=== PATIENT | male | born 1970 | race Caucasian/White ===

== ENCOUNTER 2020-01-27 15:57 | Emergency (ER) | payer OTHER, SELFPAY ==
[2020-01-27 16:16] VITALS: BP 192/86; PULSE 88; RESP 18; TEMP 37.7; O2SAT 96
--- NOTE | 2020-01-27 16:45 | CT_ITS ---
EXAMINATION: CT SOFT TISSUE NECK WITH CONTRAST CLINICAL INFORMATION: Rule out peritonsillar abscess on left. COMPARISON: None TECHNIQUE: Following the intravenous administration of 60 mL of Omnipaque 350 contrast, helical imaging was performed in the axial plane with generation of coronal and sagittal reformatted images. This CT examination was performed using dose optimization techniques as appropriate, variously including the following: *Automated exposure control *Adjustment of mA and/or kV according to patient size (this includes techniques or standardized protocols for targeted exams where dose is matched to indication/reason for exam; i.e. extremities or head) *Use of iterative reconstruction technique DLP: 1076 mGy-cm FINDINGS: There is a 2.2 x 1.8 x 2.7 cm peripherally enhancing low-density collection in the left tonsillar pillar which is asymmetrically enlarged, likely representing a peritonsillar abscess. There is edematous change and thickening of the uvula and soft palate. The nasopharyngeal airway is severely narrowed and focally obliterated. There is edematous thickening as well inferiorly in the left oropharyngeal wall extending inferiorly to the superior aperture of the left piriform sinus and lateral aspect of the left aryepiglottic fold in the supraglottic larynx. No retropharyngeal fluid collection is seen. The epiglottis is normal in appearance. The oral cavity appears normal. The parotid and submandibular glands are homogeneous. There is mild reactive cervical adenopathy bilaterally at level II and III levels with jugulodigastric lymph nodes measuring up to 2.6 cm in long axis dimension in the axial plane. No suppurative adenopathy is seen. No abnormal extra-mucosal fluid collection visible. There is fullness of the nasopharyngeal tissues with a small calcification in the central adenoids which may be postinflammatory in etiology. There is mild infiltration of the left parapharyngeal fat edematous changes in the left oropharyngeal wall. No acute osseous abnormality is seen. Incompletely unerupted and partially impacted molar teeth present. There is an unerupted mandibular incisor in the midline alveolar bone. Maxillary tooth roots protrude through the floor of the maxillary sinuses bilaterally. There is periapical lucency around the right first maxillary molar tooth root. There is mild to moderate maxillary sinus mucosal thickening, particularly along the floors. Aerosolized secretions noted in the sphenoid sinus cavity. There is a severe leftward nasal septal deviation and a large nasal septal defect anteroinferiorly. The mastoid air cells are aerated. The carotid sheath vasculature opacifies normally. The glottic and subglottic larynx are normal. The thyroid gland is homogeneous. The imaged mediastinum is unremarkable. The visualized portions of the lungs are clear. The visualized brain parenchyma demonstrates no acute abnormality. CT/CT soft tissue neck w con IMPRESSION: Approximate 2.2 x 2.7 cm left peritonsillar abscess with edematous change in the left oropharyngeal wall and partial effacement of the nasopharyngeal airway. Reactive cervical adenopathy bilaterally. Mild to moderate mucosal thickening along the floors of the maxillary sinuses with partial protrusion of maxillary molar tooth roots across the floor of the maxillary sinuses with right first maxillary molar periapical disease. Recommend follow-up dental evaluation. Significant leftward nasal septal deviation with distortion of the left inferior turbinate. Prominent perforation defect in the anteroinferior cartilaginous septum.
[2020-01-27 16:57] VITALS: BP 192/86; PULSE 88; RESP 18; TEMP 37.7; O2SAT 96; BMI 52.9
[2020-01-27 17:04] LABS: MANUAL DIFF FLAG NO
[2020-01-27 17:08] LABS: Basophils Percent Auto 0.2 % (0-2); Eosinophils Absolute Auto 0.3 X10*3/uL (0.0-0.4); Eosinophils Percent Auto 2.1 % (0-4); Hematocrit 43.4 % (42-52); Hemoglobin 13.9 g/dl (14.0-18.0); Imm Gran Abs Auto 0.03 X10*3/uL (0.00-0.03); Imm Gran Pct Auto 0.2 % (0.0-0.4); Lymphocytes Absolute Auto 1.7 X10*3/uL (1.2-4.9); Lymphocytes Percent Auto 14.1 % (20-40); Mean Corpuscular Hemoglobin 30.3 pg (27.0-33.0); Mean Corpuscular Volume 94.6 fL (80-98); Mean Platelet Volume 10.2 fL (9.4-12.4); Monocytes Absolute Auto 1.2 X10*3/uL (0.1-1.2); Monocytes Percent Auto 9.4 % (2-11); Neutrophils Absolute Auto 9.1 X10*3/uL (2.0-8.3); Platelet Count 303 X10*3/uL (160-400); Red Blood Count 4.59 X10*6/uL (4.60-5.80); Red Cell Distribution Width 12.8 % (11.0-16.0); White Blood Count 12.3 X10*3/uL (4.8-10.8)
[2020-01-27 17:41] LABS: Anion Gap 13 (12-20); Blood Urea Nitrogen 11 mg/dL (9-16); Carbon Dioxide 29 mmol/L (22-29); Chloride 102 mmol/L (96-108); Creatinine Clr Calc Pharmacy 178.6; Estimated Glomerular Filt Rate > 60; Glucose Random 129 mg/dL (60-115); Sodium 139 mmol/L (135-145)
[2020-01-27 17:47] LABS: Calcium 9.3 mg/dL (8.4-10.2)
[2020-01-27] MEDS: dexAMETHasone 2 MG TABLET 10 MG PO (17:47)
[2020-01-27] MEDS: Clindamycin Phosphate/D5W 600 MG/50 ML PIGGYBACK 100 MG IV (17:47)
--- NOTE | 2020-01-27 18:07 | ED_ITS ---
HPI - URI/Sore Throat General Chief Complaint: Upper Respiratory Symptoms <JEFF Charles Last Filed: 01/27/20 18:13> Stated Complaint: SORE THROAT/EARACHE <JEFF Charles Last Filed: 01/27/20 18:13> Time Seen by Provider: 01/27/20 16:25 <JEFF Charles Last Filed: 01/27/20 18:13> Source: patient <JEFF Charles Last Filed: 01/27/20 18:13> Mode of arrival: ambulatory <JEFF Charles Last Filed: 01/27/20 18:13> History of Present Illness HPI Narrative: 50-year-old male with no significant past medical history complaining of left-sided facial, left-sided throat, and left ear pain x4 days. Reports muffle d hearing, and pain with swallowing. Denies fever, chills, inability to swallow /drooling, CP/ SOB, drainage from ear <JEFF Charles Last Filed: 01/27/20 18:13> MD elicited complaint: sore throat and nasal congestion <JEFF Charles Last Filed: 01/27/20 18:13> Related Data Allergies/Adverse Reactions: Allergies Allergy/AdvReac Type Severity Reaction Status Date / Time No Known Allergies Allergy Unverified 12/19/19 17:08 <JEFF Charles Last Filed: 01/27/20 18:13> Review of Systems Review of Systems: Constitutional: No Weight loss, No Fever, No Chills ENT/Mouth: +L Ear Pain, No Nasal Congestion, No Sinus Pain, + Hoarseness,+ sore throat, No Rhinorrhea, No Swallowing Difficulty Cardiovascular: No Chest Pain, No SOB Respiratory: No Cough, No Sputum, No Wheezing Gastrointestinal: No Nausea, No Vomiting, No Diarrhea Skin: No Skin Lesions, No rash <JEFF Charles Last Filed: 01/27/20 18:13> Yes all other systems are reviewed and are negative <JEFF Charles Last Filed: 01/27/20 18:13> PMFSH Past Medical History Attestation statement: The following information was validated with the patient. <JEFF Charles Last Filed: 01/27/20 18:13> Source: nursing notes reviewed <JEFF Charles - Last Filed: 01/27/20 18:13> Social History Social History: Social History Smoking Status: Current some day smoker Use of substances other than those prescribed or required for medical reasons: No Advance Directives: No Advance Directives Information Provided: No <JEFF Charles - Last Filed: 01/27/20 18:13> Physical Exam Vital Signs: Vital Signs: Vital Signs Temp Pulse Resp BP Pulse Ox 01/27/20 16:57 99.9 F 88 18 192/86 H 96 01/27/20 16:16 99.9 F 88 18 192/86 H 96 Body Mass Index 52.9 <JEFF Charles - Last Filed: 01/27/20 18:13> Vital Signs: Vital Signs Temp Pulse Resp BP Pulse Ox 01/27/20 16:57 99.9 F 88 18 192/86 H 96 01/27/20 16:16 99.9 F 88 18 192/86 H 96 Body Mass Index 52.9 <Duy Olvera MD - Last Filed: 01/27/20 19:56> Const: General: cooperative and healthy appearing <JEFF Charles - Last Filed: 01/27/20 18:13> Orientation/consciousness: patient oriented x3 <JEFF Charles - Last Filed: 01/27/20 18:13> Limitations: no limitations <JEFF Charles - Last Filed: 01/27/20 18:13> HENMT: Other: no mastoid abnormality or tenderness. + left upper hard palate swelling. Uvula midline. Voice slightly muffled <JEFF Charles - Last Filed: 01/27/20 18:13> Head: Yes normal to inspection <JEFF Charles - Last Filed: 01/27/20 18:13> Ears: hearing grossly normal bilaterally and TM abnormal ( left TM erythematous, dull) <JEFF Charles - Last Filed: 01/27/20 18:13> General nose exam: Normal external nose present <JEFF Charles - Last Filed: 01/27/20 18:13> Face and sinus: Yes normal facial exam <JEFF Charles - Last Filed: 01/27/20 18:13> Eyes: General: appearance normal, both eyes and all related structures <JEFF Charles - Last Filed: 01/27/20 18:13> EOM: EOMs intact bilaterally <Olivia Trevino AK - Last Filed: 01/27/20 18:13> Neck: Other: mild left-sided submandibular lymphadenopathy <Olivia Trevino AK - Last Filed: 01/27/20 18:13> Neck: Yes normal visual inspection <Olivia Trevino AK - Last Filed: 01/27/20 18:13> Resp: Effort & Inspection: normal respiratory effort <Olivia Trevino AK - Last Filed: 01/27/20 18:13> Cardio: Rate: regular rate <Olivia Trevino AK - Last Filed: 01/27/20 18:13> Skin: Rashes: no rashes <Olivia Trevino AK - Last Filed: 01/27/20 18:13> Wounds: no wounds <Olivia Trevino AK - Last Filed: 01/27/20 18:13> Neuro: General: patient oriented x3 <Olivia Trevino AK - Last Filed: 01/27/20 18:13> Gait exam (Neuro): Normal gait present <JEFF Charles - Last Filed: 01/27/20 18:13> Extrem: General: Yes normal to inspection <JEFF Charles - Last Filed: 01/27/20 18:13> Course Course Course Narrative: -- mild leukocytosis of 12.3, labs otherwise unremarkable -1814--ED care transferred to Dr. Olvera pending CT results <JEFF Charles - Last Filed: 01/27/20 18:13> left peritonsillar abscess drained under local anesthesia 5 mL of pus drained patient feeling much better procedure uncomplicated discharge patient home on Augmentin <Duy Olvera MD - Last Filed: 01/27/20 19:56> Procedures Abscess I/D Site: oral ( left peritonsillar) <Duy Olvera MD - Last Filed: 01/27/20 19 :56> Side (if applicable): left <Duy Olvera MD - Last Filed: 01/27/20 19:56> Local Anesthetic: other anesthetic ( lidocaine 4%) <Duy Olvera MD - Last Filed: 01/27/20 19:56> Amount of anesthesia used (mL): 4 <Duy Olvera MD - Last Filed: 01/27/20 19:56> Technique: needle aspiration <Duy Olvera MD - Last Filed: 01/27/20 19:56> Amount of fluid expressed (mL): 5 <Duy Olvera MD - Last Filed: 01/27/20 19:56> Sent for culture/gram staining?: No <Duy Olvera MD - Last Filed: 01/27/20 19:56> MDM - URI/Sore Throat MDM Narrative Medical decision making narrative: On exam VSS, NAD, uvula midline however appreciable L intraoral swelling and muffled voice. Concern for [employer] vs cellulitis vs strep vs otitis. airway intact. patient talking in complete sentences, in no respiratory distress. Plan: Labs, CT, IV Clindamycin, Decadron p.o., reassess <JEFF Charles - Last Filed: 01/27/20 18:13> Lab Data Result diagrams: : 01/27/20 16:49 01/27/20 16:49 <JEFF Charles - Last Filed: 01/27/20 18:13> Labs: Lab Results 01/27/20 01/27/20 Range/Units 16:49 16:49 WBC 12.3 H (4.8-10.8) X10*3/uL RBC 4.59 L (4.60-5.80) X10*6/uL Hgb 13.9 L (14.0-18.0) g/dl Hct 43.4 (42-52) % MCV 94.6 (80-98) fL MCH 30.3 (27.0-33.0) pg MCHC 32.0 (31.0-36.0) g/dl RDW 12.8 (11.0-16.0) % Plt Count 303 (160-400) X10*3/uL MPV 10.2 (9.4-12.4) fL Immature Gran % (Auto) 0.2 (0.0-0.4) % Neut % (Auto) 74.0 H (45-73) % Lymph % (Auto) 14.1 L (20-40) % [place] % (Auto) 9.4 (2-11) % Eos % (Auto) 2.1 (0-4) % Baso % (Auto) 0.2 (0-2) % Lymph # (Auto) 1.7 (1.2-4.9) X10*3/uL [place] # (Auto) 1.2 (0.1-1.2) X10*3/uL Eos # (Auto) 0.3 (0.0-0.4) X10*3/uL Baso # (Auto) 0.0 (0.0-0.2) X10*3/uL Abs Immat Gran (auto) 0.03 (0.00-0.03) X10*3/uL Absolute Neuts (auto) 9.1 H (2.0-8.3) X10*3/uL Absolute Nucleated RBC 0.000 (0.0-0.012) X10*3/uL Nucleated RBC % (auto) 0.0 (0.0-0.2) /100WBC Sodium 139 (135-145) mmol/L Potassium 5.0 (3.3-5.1) mmol/l Chloride 102 (96-108) mmol/L Carbon Dioxide 29 (22-29) mmol/L Anion Gap 13 (12-20) BUN 11 (9-16) mg/dL Creatinine 0.83 (0.5-1.4) mg/dL Estim Creat Clear Calc 178.6 Estimated GFR > 60 Random Glucose 129 H (60-115) mg/dL Calcium 9.3 (8.4-10.2) mg/dL <JEFF Charles - Last Filed: 01/27/20 18:13> Lab Results 01/27/20 01/27/20 Range/Units 16:49 16:49 WBC 12.3 H (4.8-10.8) X10*3/uL RBC 4.59 L (4.60-5.80) X10*6/uL Hgb 13.9 L (14.0-18.0) g/dl Hct 43.4 (42-52) % MCV 94.6 (80-98) fL MCH 30.3 (27.0-33.0) pg MCHC 32.0 (31.0-36.0) g/dl RDW 12.8 (11.0-16.0) % Plt Count 303 (160-400) X10*3/uL MPV 10.2 (9.4-12.4) fL Immature Gran % (Auto) 0.2 (0.0-0.4) % Neut % (Auto) 74.0 H (45-73) % Lymph % (Auto) 14.1 L (20-40) % [place] % (Auto) 9.4 (2-11) % Eos % (Auto) 2.1 (0-4) % Baso % (Auto) 0.2 (0-2) % Lymph # (Auto) 1.7 (1.2-4.9) X10*3/uL [place] # (Auto) 1.2 (0.1-1.2) X10*3/uL Eos # (Auto) 0.3 (0.0-0.4) X10*3/uL Baso # (Auto) 0.0 (0.0-0.2) X10*3/uL Abs Immat Gran (auto) 0.03 (0.00-0.03) X10*3/uL Absolute Neuts (auto) 9.1 H (2.0-8.3) X10*3/uL Absolute Nucleated RBC 0.000 (0.0-0.012) X10*3/uL Nucleated RBC % (auto) 0.0 (0.0-0.2) /100WBC Sodium 139 (135-145) mmol/L Potassium 5.0 (3.3-5.1) mmol/l Chloride 102 (96-108) mmol/L Carbon Dioxide 29 (22-29) mmol/L Anion Gap 13 (12-20) BUN 11 (9-16) mg/dL Creatinine 0.83 (0.5-1.4) mg/dL Estim Creat Clear Calc 178.6 Estimated GFR > 60 Random Glucose 129 H (60-115) mg/dL Calcium 9.3 (8.4-10.2) mg/dL <Duy Olvera MD - Last Filed: 01/27/20 19:56> Discharge Plan Discharge Patient Disposition: Home, Self-Care <JEFF Charles - Last Filed: 01/27/20 18:13>
[2020-01-27] MEDS: iohexoL 350 MG/ML 100 ML INFUS..BTL IV (18:10)
[2020-01-27] MEDS: Ketorolac Tromethamine 15 MG/ML VIAL IVPUSH (18:27)
[2020-01-27] MEDS: Morphine Sulfate 2 MG/ML CARTRIDGE IVPUSH (18:27)
[2020-01-27 20:00] VITALS: BP 152/79; PULSE 89; RESP 18; TEMP 37.6; O2SAT 95
== END 2020-01-27 20:44 | disposition home or self-care (01) ==
PROVIDERS: Physician Assistant; Emergency Provider Internal Medicine; PCP Nurse Practitioner Family
DX: J36 Peritonsillar abscess (principal); H92.03 Otalgia, bilateral; Z20.828 Contact with and (suspected) exposure to other viral communicable diseases; F17.200 Nicotine dependence, unspecified, uncomplicated; Z71.6 Tobacco abuse counseling
CPT/HCPCS: 36415; 42700; 70491; 80048; 85025; 87071; 87635; 87880; 96365; 96375; 99284; J1885; J2270; J8540

== ENCOUNTER 2020-02-10 05:59 | Emergency (ER) | payer OTHER, SELFPAY ==
[2020-02-10 06:07] VITALS: BP 145/82; PULSE 76; RESP 16; TEMP 36.8; O2SAT 96; BMI 49.3
--- NOTE | 2020-02-10 06:17 | ECG_ITS ---
Test Reason : ARM NUMBNESS Blood Pressure : / mmHG Vent. Rate : 066 BPM Atrial Rate : 066 BPM P-R Int : 154 ms QRS Dur : 086 ms QT Int : 412 ms P-R-T Axes : 043 006 053 degrees QTc Int : 431 ms Normal sinus rhythm Normal ECG When compared with ECG of 24-APR-2018 05:27, Vent. rate has decreased BY 39 BPM Referred By: Mikel Tamayo Electronically Signed By:JAVIER RODRIGUEZ MD
--- NOTE | 2020-02-10 06:18 | XR_ITS ---
EXAMINATION: CHEST 1 VIEW CLINICAL INFORMATION: Shortness of breath. COMPARISON: 12/22/2018. TECHNIQUE: An AP view of the chest is provided. FINDINGS: The cardiac silhouette is not enlarged. The mediastinal and hilar contours are unremarkable. There are neither pleural effusions nor pneumothoraces. There are no consolidations. The osseous structures are unremarkable. XR/XR chest 1V IMPRESSION: No evidence for acute disease.
[2020-02-10 06:42] LABS: Basophils Percent Auto 0.3 % (0-2); Eosinophils Absolute Auto 0.2 X10*3/uL (0.0-0.4); Eosinophils Percent Auto 2.3 % (0-4); Imm Gran Abs Auto 0.02 X10*3/uL (0.00-0.03); Imm Gran Pct Auto 0.3 % (0.0-0.4); Lymphocytes Absolute Auto 1.7 X10*3/uL (1.2-4.9); Lymphocytes Percent Auto 24.2 % (20-40); MANUAL DIFF FLAG NO; Mean Corpuscular HGB Conc 31.7 g/dl (31.0-36.0); Mean Corpuscular Volume 94.5 fL (80-98); Mean Platelet Volume 11.4 fL (9.4-12.4); Monocytes Absolute Auto 0.7 X10*3/uL (0.1-1.2); Monocytes Percent Auto 9.2 % (2-11); Neutrophils Absolute Auto 4.5 X10*3/uL (2.0-8.3); Neutrophils Percent Auto 63.7 % (45-73); Platelet Count 250 X10*3/uL (160-400); Red Blood Count 4.34 X10*6/uL (4.60-5.80); Red Cell Distribution Width 12.4 % (11.0-16.0)
--- NOTE | 2020-02-10 06:48 | ED_ITS ---
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 Mode of arrival: ambulatory Limitations: no limitations History of Present Illness HPI narrative: evie he woke up like this with his arm tingling and painful complaint: wants neb treatment, L arm pain/numbness hurts to make a fist Onset (ago): day(s) (3) Location: left and upper extremity Radiation: non-radiation Severity: moderate Quality: aching Pain Consistency: constant Relieving factors: none Exacerbating factors: movement Associated symptoms: cough Treatments prior to arrival: none Related Data Home Medications Medication Instructions Recorded Confirmed betamethasone dipropionate TOPICAL BID 02/10/20 cholecalciferol (vitamin D3) 1 cap PO DAILY 02/10/20 02/10/20 diclofenac sodium 2 g TOPICAL QID 02/10/20 02/10/20 fluticasone propionate [Flovent 1 puff INHALATION 02/10/20 HFA] folic acid 1 tab PO DAILY 02/10/20 02/10/20 insulin glargine [Lantus Solostar 10 unit SUBCUT BEDTIME 02/10/20 02/10/20 U-100 Insulin] loratadine 1 tab PO DAILY 02/10/20 02/10/20 melatonin 1 tab PO BEDTIME 02/10/20 02/10/20 metformin 1 tab PO BID 02/10/20 02/10/20 montelukast 1 tab PO DAILY 02/10/20 02/10/20 sertraline 1 tab PO DAILY 02/10/20 02/10/20 tramadol 1 tab PO Q8H PRN 02/10/20 02/10/20 trazodone 1 - 2 tab PO BEDTIME PRN 02/10/20 02/10/20 umeclidinium [Incruse Ellipta] 1 inh INHALATION 02/10/20 Previous Rx's Medication Instructions Recorded amoxicillin-pot clavulanate 1 tab PO BID #20 tab 01/27/20 [Augmentin] ibuprofen 600 mg PO Q6H PRN #20 tab 01/27/20 cyclobenzaprine 10 mg PO TID PRN #14 tab 02/10/20 Allergies Allergy/AdvReac Type Severity Reaction Status Date / Time No Known Allergies Allergy Verified 02/10/20 06:47 Review of Systems Review of Systems: Constitutional : No Fever, No Chills ENT/Mouth : No Ear Pain, No Hoarseness, No sore throat Eyes: No Eye Pain, No Swelling, No Redness, No Foreign Body Cardiovascular : No Chest Pain, No SOB Respiratory : pos Cough, No Dyspnea Gastrointestinal : No Nausea, No Vomiting, No Diarrhea, No abdominal Pain Genitourinary : No Dysuria, No Hematuria Musculoskeletal : positive joint pain, pos Myalgias, No Joint Swelling Skin : No Skin lacerations, No rash Neuro : No Weakness, No Numbness, No Loss of Consciousness, No Dizziness, No Headache Psych : No Anxiety/Panic, No Depression Heme/Lymph: no easy bruising, no Lymphadenopathy Endocrine : No Polyuria, No Polydipsia All other systems reviewed and are negative [facility] Past Medical History Medical History Arthritis Asthma Diabetes HTN (hypertension) Social History Social History Alcohol intake: never Smoking Status: Current some day smoker Use of substances other than those prescribed or required for medical reasons: No Advance Directives: Yes Advance Directives Information Provided: Yes Advance Directives on File: No Physical Exam Vital Signs: Vital Signs: Last Vital Signs Temp 98.2 F 02/10/20 06:07 Pulse 76 02/10/20 06:07 Resp 16 02/10/20 06:07 BP 145/82 H 02/10/20 06:07 Pulse Ox 96 02/10/20 06:07 Body Mass Index 49.3 Appearance: Alert. Oriented X3. No acute distress. Eyes: Pupils equal, round and reactive to light. ENT: Pharynx normal. Neck: Normal inspection. Neck supple. No pain, no mass, full ROM CVS: Normal heart rate and rhythm. Pulses normal. Respiratory: No respiratory distress. Breath sounds normal. Abdomen: Soft and nontender. Obese Skin: Skin warm and dry. Normal skin color. Normal skin turgor. Extremities: No lower extremity edema. L arm pain from elbow to hand - no swelling, 2+ radial pulse, thenar eminence swollen mildly cannot make full fist seems mostly pain related Neuro: Oriented X 3. No motor deficit. No sensory deficit. Course Course Course Narrative: his left arm pain is reproduceable and distal to elbow mostly hand itself I believe this is a peripheral issue and not a central will DC home with medications Procedures Orthopedic Splinting/Casting Injury #1: Side: left Upper Extremity Injury Location: wrist Upper Extremity Immobilizer: wrist splint Medical Decision Making [facility] Narrative Medical decision making narrative: 50 yo male with recent L [employer] - on01/26 throat symptoms have cleared no sore throat, no fevers, no issues swallowing, no neck pain now here with request for neb treatment as well as his L hand from elbow to hand is painful and feels tingling he cannot make a fist due to the pain this has been going on for 3 days, will need neb, labs, EKG, CXR seems unusual for ACS/stroke and the pain/numbness is very peripheral - no trauma reported woke up like this one day after sleep could be peripheral nerve palsy - CT head ordered but seems unusual for stroke Lab Data Result diagrams: 02/10/20 06:32 02/10/20 06:32 Labs: Lab Results 02/10/20 02/10/20 02/10/20 Range/Units 06:32 06:32 06:32 WBC 7.0 (4.8-10.8) X10*3/uL RBC 4.34 L (4.60-5.80) X10*6/uL Hgb 13.0 L (14.0-18.0) g/dl Hct 41.0 L (42-52) % MCV 94.5 (80-98) fL MCH 30.0 (27.0-33.0) pg MCHC 31.7 (31.0-36.0) g/dl RDW 12.4 (11.0-16.0) % Plt Count 250 (160-400) X10*3/uL MPV 11.4 (9.4-12.4) fL Immature Gran % (Auto) 0.3 (0.0-0.4) % Neut % (Auto) 63.7 (45-73) % Lymph % (Auto) 24.2 (20-40) % [place] % (Auto) 9.2 (2-11) % Eos % (Auto) 2.3 (0-4) % Baso % (Auto) 0.3 (0-2) % Lymph # (Auto) 1.7 (1.2-4.9) X10*3/uL [place] # (Auto) 0.7 (0.1-1.2) X10*3/uL Eos # (Auto) 0.2 (0.0-0.4) X10*3/uL Baso # (Auto) 0.0 (0.0-0.2) X10*3/uL Abs Immat Gran (auto) 0.02 (0.00-0.03) X10*3/uL Absolute Neuts (auto) 4.5 (2.0-8.3) X10*3/uL Absolute Nucleated RBC 0.000 (0.0-0.012) X10*3/uL Nucleated RBC % (auto) 0.0 (0.0-0.2) /100WBC Sodium 140 (135-145) mmol/L Potassium 4.5 (3.3-5.1) mmol/l Chloride 105 (96-108) mmol/L Carbon Dioxide 28 (22-29) mmol/L Anion Gap 12 (12-20) BUN 15 (9-16) mg/dL Creatinine 0.77 (0.5-1.4) mg/dL Estim Creat Clear Calc 184.7 Estimated GFR > 60 Random Glucose 156 H (60-115) mg/dL Calcium 9.3 (8.4-10.2) mg/dL Magnesium 1.9 (1.6-2.6) mg/dL Total Creatine Kinase 156 (38-174) U/L Troponin I High Sens 12.0 (<3.5-35.0) ng/L 02/10/20 Range/Units 09:39 WBC (4.8-10.8) X10*3/uL RBC (4.60-5.80) X10*6/uL Hgb (14.0-18.0) g/dl Hct (42-52) % MCV (80-98) fL MCH (27.0-33.0) pg MCHC (31.0-36.0) g/dl RDW (11.0-16.0) % Plt Count (160-400) X10*3/uL MPV (9.4-12.4) fL Immature Gran % (Auto) (0.0-0.4) % Neut % (Auto) (45-73) % Lymph % (Auto) (20-40) % [place] % (Auto) (2-11) % Eos % (Auto) (0-4) % Baso % (Auto) (0-2) % Lymph # (Auto) (1.2-4.9) X10*3/uL [place] # (Auto) (0.1-1.2) X10*3/uL Eos # (Auto) (0.0-0.4) X10*3/uL Baso # (Auto) (0.0-0.2) X10*3/uL Abs Immat Gran (auto) (0.00-0.03) X10*3/uL Absolute Neuts (auto) (2.0-8.3) X10*3/uL Absolute Nucleated RBC (0.0-0.012) X10*3/uL Nucleated RBC % (auto) (0.0-0.2) /100WBC Sodium (135-145) mmol/L Potassium (3.3-5.1) mmol/l Chloride (96-108) mmol/L Carbon Dioxide (22-29) mmol/L Anion Gap (12-20) BUN (9-16) mg/dL Creatinine (0.5-1.4) mg/dL Estim Creat Clear Calc Estimated GFR Random Glucose (60-115) mg/dL Calcium (8.4-10.2) mg/dL Magnesium (1.6-2.6) mg/dL Total Creatine Kinase (38-174) U/L Troponin I High Sens 8.9 (<3.5-35.0) ng/L ECG Data Attestation: I personally reviewed and interpreted this ECG as follows: Interpretation: Rate: 66 Rhythm: NSR [place]: left Normal P waves. Normal [place]. Normal QRS complex. ST T wave : normal qTC: normal prior studies: no acute ischemia The study has been interpreted contemporaneously by me. . Discharge Plan Discharge Clinical Impression: Arthralgia Qualifiers: Joint pain location: hand Laterality: bilateral Qualified Code(s): M25.541 - Pain in joints of right hand Patient Disposition: Home, Self-Care Instructions: Arthralgia (ED) Additional Instructions: return to ED for any worsening symptoms or concerns Prescriptions: New cyclobenzaprine 10 mg tablet 10 mg PO TID PRN (Reason: muscle spasm) Qty: 14 RF: 0 No Action ibuprofen 600 mg tablet 600 mg PO Q6H PRN (Reason: pain) Qty: 20 RF: 0 amoxicillin-pot clavulanate [Augmentin] 875-125 mg tablet 1 tab PO BID Qty: 20 RF: 0 tramadol 50 mg tablet 1 tab PO Q8H PRN (Reason: severe pain) RF: 0 trazodone 150 mg tablet 1 - 2 tab PO BEDTIME PRN (Reason: Sleep) RF: 0 metformin 1,000 mg tablet 1 tab PO BID RF: 0 folic acid 1 mg tablet 1 tab PO DAILY RF: 0 montelukast 10 mg tablet 1 tab PO DAILY RF: 0 betamethasone dipropionate 0.05 % ointment topical BID RF: 0 sertraline 50 mg tablet 1 tab PO DAILY RF: 0 cholecalciferol (vitamin D3) 125 mcg (5,000 unit) capsule 1 cap PO DAILY RF: 0 loratadine 10 mg tablet 1 tab PO DAILY RF: 0 Flovent HFA 110 mcg/actuation HFA aerosol inhaler 1 puff inhalation RF: 0 Lantus Solostar U-100 Insulin 100 unit/mL (3 mL) insulin pen 10 unit subcut BEDTIME RF: 0 diclofenac sodium 1 % gel 2 g topical QID RF: 0 melatonin 5 mg tablet 1 tab PO BEDTIME RF: 0 Incruse Ellipta 62.5 mcg/actuation blister with device 1 inh inhalation RF: 0 Referrals: Joseph Albarran [employer]S DESIGNER [Primary Care Provider] - 2 days (if not better) Interventions: ED Discharge Assessment Last Done: 02/10/20 10:28 Discharge Date/Time: 02/10/20 10:34 Print Language: Belarusian
--- NOTE | 2020-02-10 06:52 | CT_ITS ---
EXAMINATION: CT HEAD WITHOUT CONTRAST CLINICAL INFORMATION: Left arm pain and weakness for 3 days. COMPARISON: CT had noncontrast 01/28/2016. TECHNIQUE: Contiguous axial imaging was performed from the skull base to vertex without intravenous administration of contrast. Additional 2-D coronal and sagittal reformatted images are generated on the CT workstation and uploaded to PACS. DOSE LOWERING TECHNIQUES: This CT examination was performed using dose optimization techniques as appropriate, variously including the following: *Automated exposure control *Adjustment of mA and/or kV according to patient size (this includes techniques or standardized protocols for targeted exams where dose is matched to indication/reason for exam; i.e. extremities or head) *Use of iterative reconstruction technique DLP: 902 mGy-cm FINDINGS: There is some beam hardening artifact through the posterior fossa. There is no intracranial hemorrhage, hematoma, or extra-axial fluid collection. The ventricles are normal in size. There is no hydrocephalus, edema, or mass effect. The villegas-white matter differentiation appears symmetric. There is no visible acute territorial infarct or mass lesion. The calvarium appears intact. There is no pneumocephalus or orbital emphysema. The visualized sinuses and middle ears and mastoid air cells show no significant mucosal thickening. There are no air-fluid levels. CT/CT head/brain wo con IMPRESSION: No acute intracranial abnormality.
[2020-02-10] MEDS: Albuterol Sulfate (0.083%) 2.5 MG/3 ML VIAL.NEB 5 MG INHALE (07:00)
[2020-02-10 07:17] LABS: Anion Gap 12 (12-20); Blood Urea Nitrogen 15 mg/dL (9-16); Calcium 9.3 mg/dL (8.4-10.2); Carbon Dioxide 28 mmol/L (22-29); Chloride 105 mmol/L (96-108); Creatinine Clr Calc Pharmacy 184.7; Estimated Glomerular Filt Rate > 60; Glucose Random 156 mg/dL (60-115); Potassium 4.5 mmol/l (3.3-5.1); Sodium 140 mmol/L (135-145)
[2020-02-10] MEDS: oxyCODONE HCl Immed Release 5 MG TABLET 10 MG PO (07:23)
[2020-02-10 07:48] LABS: Magnesium 1.9 mg/dL (1.6-2.6)
[2020-02-10] MEDS: Ketorolac Tromethamine 60 MG/2 ML VIAL IM (08:32)
--- NOTE | 2020-02-10 08:59 | XR_ITS ---
EXAMINATION: XR HAND WRIST, LEFT CLINICAL INFORMATION: Pain COMPARISON: Radiographs left forearm 05/06/2017, radiographs left hand and wrist 04/21/2015. TECHNIQUE: The left hand and wrist are imaged together in 3 views. There is also a navicular view of the wrist included for a total of 4 views. FINDINGS: There is no fracture or dislocation. The bony mineralization appears normal. The ulnar variance is neutral. There is no destructive process or periostitis. The carpus shows no joint narrowing or erosive change or chondrocalcinosis. The MCP and interphalangeal joints are unremarkable. No focal joint narrowing or erosive change. XR/XR hand wrist LT IMPRESSION: No fracture, dislocation, or arthropathy.
[2020-02-10 10:15] LABS: Troponin-I High Sensitivity 8.9 ng/L (<3.5-35.0)
== END 2020-02-10 10:34 | disposition home or self-care (01) ==
PROVIDERS: Emergency Medicine; Emergency Provider Emergency Medicine; PCP Nurse Practitioner Family
DX: M25.541 Pain in joints of right hand (principal); M79.602 Pain in left arm; R51.9 Headache, unspecified; R20.0 Anesthesia of skin; Z79.899 Other long term (current) drug therapy; F17.200 Nicotine dependence, unspecified, uncomplicated; Z71.6 Tobacco abuse counseling
CPT/HCPCS: 29125; 36415; 70450; 71045; 73110; 73130; 80048; 82550; 83735; 84484; 85025; 93005; 94640; 96372; 99283; 99284; J1885

== ENCOUNTER 2020-06-05 06:53 | Emergency (ER) | payer OTHER, SELFPAY ==
--- NOTE | ~2020-06-05 | XR_ITS ---
EXAMINATION: RIGHT SHOULDER, RIGHT KNEE AND RIGHT ELBOW. CLINICAL INFORMATION: Fall, pain. COMPARISON: None TECHNIQUE: 4 views right elbow. 2 views right knee and 2 views right shoulder. FINDINGS: RIGHT ELBOW: There is no visible acute fracture, dislocation or subluxation. No bony erosive changes seen. The soft tissues are normal. RIGHT KNEE: There is no visible acute fracture, dislocation or subluxation seen. There is no abnormal joint effusion. No bony erosive changes. RIGHT SHOULDER: There is no visible acute fracture, dislocation or subluxation seen. The glenohumeral joint space is normal. The AC joint space is normal. There is a small calcification along the right greater tuberosity likely calcific bursitis. XR/XR knee RT 2V IMPRESSION: Unremarkable right elbow exam. Unremarkable right knee exam. Calcific bursitis. No acute fracture or dislocation seen.
--- NOTE | ~2020-06-05 | XR_ITS ---
EXAMINATION: RIGHT SHOULDER, RIGHT KNEE AND RIGHT ELBOW. CLINICAL INFORMATION: Fall, pain. COMPARISON: None TECHNIQUE: 4 views right elbow. 2 views right knee and 2 views right shoulder. FINDINGS: RIGHT ELBOW: There is no visible acute fracture, dislocation or subluxation. No bony erosive changes seen. The soft tissues are normal. RIGHT KNEE: There is no visible acute fracture, dislocation or subluxation seen. There is no abnormal joint effusion. No bony erosive changes. RIGHT SHOULDER: There is no visible acute fracture, dislocation or subluxation seen. The glenohumeral joint space is normal. The AC joint space is normal. There is a small calcification along the right greater tuberosity likely calcific bursitis. XR/XR shoulder RT min 2V IMPRESSION: Unremarkable right elbow exam. Unremarkable right knee exam. Calcific bursitis. No acute fracture or dislocation seen.
--- NOTE | ~2020-06-05 | XR_ITS ---
EXAMINATION: RIGHT SHOULDER, RIGHT KNEE AND RIGHT ELBOW. CLINICAL INFORMATION: Fall, pain. COMPARISON: None TECHNIQUE: 4 views right elbow. 2 views right knee and 2 views right shoulder. FINDINGS: RIGHT ELBOW: There is no visible acute fracture, dislocation or subluxation. No bony erosive changes seen. The soft tissues are normal. RIGHT KNEE: There is no visible acute fracture, dislocation or subluxation seen. There is no abnormal joint effusion. No bony erosive changes. RIGHT SHOULDER: There is no visible acute fracture, dislocation or subluxation seen. The glenohumeral joint space is normal. The AC joint space is normal. There is a small calcification along the right greater tuberosity likely calcific bursitis. XR/XR elbow RT min 3V IMPRESSION: Unremarkable right elbow exam. Unremarkable right knee exam. Calcific bursitis. No acute fracture or dislocation seen.
[2020-06-05 07:15] VITALS: BP 157/79; PULSE 82; RESP 20; TEMP 36.6; O2SAT 96; BMI 50.8
--- NOTE | 2020-06-05 07:23 | ED.EXTPRO ---
HPI - Extremity Problem General Chief complaint: Extremity Injury, Upper Stated complaint: Multiple Complaints Time Seen by Provider: 06/05/20 06:58 Source: patient Mode of arrival: ambulatory Limitations: no limitations History of Present Illness HPI Narrative: Patient comes to the emergency room complaining of right-sided knee pain, right elbow pain with rotation and right shoulder pain. Patient states about 2 and half to 3 weeks ago he slipped on ice and fell, patient has been able to do his daily activities, but states the pain is still present. Patient also mentions that he has chronic back pain, he usually gets prescribed tramadol 50 mg by his primary care physician, however he ran out of his medications about a week and half ago. MD Complaint: extremity pain Related Data Home Medications Medication Instructions Recorded Confirmed betamethasone dipropionate TOPICAL BID 02/10/20 cholecalciferol (vitamin D3) 1 cap PO DAILY 02/10/20 02/10/20 diclofenac sodium 2 g TOPICAL QID 02/10/20 02/10/20 fluticasone propionate [Flovent 1 puff INHALATION 02/10/20 HFA] folic acid 1 tab PO DAILY 02/10/20 02/10/20 insulin glargine [Lantus Solostar 10 unit SUBCUT BEDTIME 02/10/20 02/10/20 U-100 Insulin] loratadine 1 tab PO DAILY 02/10/20 02/10/20 melatonin 1 tab PO BEDTIME 02/10/20 02/10/20 metformin 1 tab PO BID 02/10/20 02/10/20 montelukast 1 tab PO DAILY 02/10/20 02/10/20 sertraline 1 tab PO DAILY 02/10/20 02/10/20 tramadol 1 tab PO Q8H PRN 02/10/20 02/10/20 trazodone 1 - 2 tab PO BEDTIME PRN 02/10/20 02/10/20 umeclidinium [Incruse Ellipta] 1 inh INHALATION 02/10/20 Previous Rx's Medication Instructions Recorded amoxicillin-pot clavulanate 1 tab PO BID #20 tab 01/27/20 [Augmentin] ibuprofen 600 mg PO Q6H PRN #20 tab 01/27/20 cyclobenzaprine 10 mg PO TID PRN #14 tab 02/10/20 tramadol 50 mg PO BID PRN #10 tab 06/05/20 Allergies Allergy/AdvReac Type Severity Reaction Status Date / Time No Known Allergies Allergy Verified 02/10/20 06:47 Review of Systems Review of Systems: Constitutional : No Weight loss, No Fever, No Chills, No Night Sweats, No Fatigue, No Malaise ENT/Mouth : No Hearing loss, No Ear Pain, No Nasal Congestion, No Sinus Pain, No Hoarseness, No sore throat, No Rhinorrhea, No Swallowing Difficulty Eyes: No Eye Pain, No Swelling, No Redness, No Foreign Body, No Discharge, No Vision Changes Cardiovascular : No Chest Pain, No SOB, No Dyspnea on Exertion, No Orthopnea, No Edema, No Palpitations Respiratory : No Cough, No Sputum, No Wheezing, No Smoke Exposure, No Dyspnea Gastrointestinal : No Nausea, No Vomiting, No Diarrhea, No Constipation, No abdominal Pain, No Hematochezia, No Melena Genitourinary : no irregular bleeding, No Dysuria, No Urinary Frequency, No Hematuria, No Urinary Incontinence, No Urgency, No Flank Pain, No Urinary Flow Changes, No Hesitancy Musculoskeletal : Complaining of chronic back pain, complaining of 3 weeks of right-sided shoulder/elbow/knee pain Skin : No Skin Lesions, No rash Neuro : No Weakness, No Numbness, No Paresthesias, No Loss of Consciousness, No Dizziness, No Headache Psych : No Anxiety/Panic, No Depression, No SI/HI/AH/VH, No Social Issues, Heme/Lymph: No Bruising, No Bleeding,No Lymphadenopathy Endocrine : No Polyuria, No Polydipsia, No Temperature Intolerance [facility] Past Medical History Medical History Arthritis Asthma Diabetes HTN (hypertension) Social History Social History Alcohol intake: never Smoking Status: Current every day smoker Use of substances other than those prescribed or required for medical reasons: No Advance Directives: No Advance Directives Information Provided: No Physical Exam Vital Signs: Vital Signs: Last Vital Signs Temp 97.8 F 06/05/20 07:15 Pulse 82 06/05/20 07:15 Resp 20 06/05/20 07:15 BP 157/79 H 06/05/20 07:15 Pulse Ox 96 06/05/20 07:15 Body Mass Index 50.8 Appearance: Alert. Oriented X3. No acute distress. Eyes: Pupils equal, round and reactive to light. ENT: Pharynx normal. Neck: Normal inspection. Neck supple. No lymph nodes noted. No crepitus CVS: Normal heart rate and rhythm. Pulses normal. Normal S1 and S2 Respiratory: No respiratory distress. Breath sounds normal. No Wheezing. No rales Abdomen: Soft and nontender. No rigidity. No distention. good BS x4 Skin: Skin warm and dry. Normal skin color. Normal skin turgor. Extremities: No lower extremity edema. Patient is able to stand, walk, extend and flex knee, hip. Patient has no wrist pain on the right side or left side.. Patient is able to flex and extend elbow without difficulty, patient has pain on rotation on the anterior cubital fossa but only with rotation. Patient is able to abduct and a duct shoulder actively and passively and hold his arms up Neuro: Oriented X 3. No motor deficit. No sensory deficit. Moving all extermities. No slurred speech. Course Course Course Narrative: I discussed the x-rays with the patient, no acute fracture. It has been over a week since patient has this pain due to a fall, patient will be given a prescription of tramadol, patient may need physical therapy for chronic pain MDM - Extremity (Nontraumatic) Imaging Data Right elbow/knee/shoulder x-ray: Radiologist's impression: INDINGS: RIGHT ELBOW: There is no visible acute fracture, dislocation or subluxation. No bony erosive changes seen. The soft tissues are normal. RIGHT KNEE: There is no visible acute fracture, dislocation or subluxation seen. There is no abnormal joint effusion. No bony erosive changes. RIGHT SHOULDER: There is no visible acute fracture, dislocation or subluxation seen. The glenohumeral joint space is normal. The AC joint space is normal. There is a small calcification along the right greater tuberosity likely calcific bursitis. Discharge Plan Discharge Clinical Impression: Arthralgia Qualifiers: Joint pain location: unspecified Qualified Code(s): M25.50 - Pain in unspecified joint Patient Disposition: Home, Self-Care Instructions: Arthralgia (ED) Additional Instructions: Please follow-up with your primary care physician tomorrow. If you have any worsening or new symptoms, please return to the emergency room or call 911 Prescriptions: New tramadol 50 mg tablet 50 mg PO BID PRN (Reason: pain) Qty: 10 RF: 0 No Action ibuprofen 600 mg tablet 600 mg PO Q6H PRN (Reason: pain) Qty: 20 RF: 0 amoxicillin-pot clavulanate [Augmentin] 875-125 mg tablet 1 tab PO BID Qty: 20 RF: 0 tramadol 50 mg tablet 1 tab PO Q8H PRN (Reason: severe pain) RF: 0 trazodone 150 mg tablet 1 - 2 tab PO BEDTIME PRN (Reason: Sleep) RF: 0 metformin 1,000 mg tablet 1 tab PO BID RF: 0 folic acid 1 mg tablet 1 tab PO DAILY RF: 0 montelukast 10 mg tablet 1 tab PO DAILY RF: 0 betamethasone dipropionate 0.05 % ointment topical BID RF: 0 sertraline 50 mg tablet 1 tab PO DAILY RF: 0 cholecalciferol (vitamin D3) 125 mcg (5,000 unit) capsule 1 cap PO DAILY RF: 0 loratadine 10 mg tablet 1 tab PO DAILY RF: 0 Flovent HFA 110 mcg/actuation HFA aerosol inhaler 1 puff inhalation RF: 0 Lantus Solostar U-100 Insulin 100 unit/mL (3 mL) insulin pen 10 unit subcut BEDTIME RF: 0 diclofenac sodium 1 % gel 2 g topical QID RF: 0 melatonin 5 mg tablet 1 tab PO BEDTIME RF: 0 Incruse Ellipta 62.5 mcg/actuation blister with device 1 inh inhalation RF: 0 cyclobenzaprine 10 mg tablet 10 mg PO TID PRN (Reason: muscle spasm) Qty: 14 RF: 0
[2020-06-05] MEDS: traMADoL HCL 50 MG TABLET PO (07:28)
--- NOTE | 2020-06-05 09:19 | PC.NURSE ---
pt reports feeling a little better, pain at 7/10
== END 2020-06-05 09:22 | disposition home or self-care (01) ==
PROVIDERS: Emergency Provider Emergency Medicine
DX: M25.50 Pain in unspecified joint (principal); E11.9 Type 2 diabetes mellitus without complications; I10 Essential (primary) hypertension; F17.200 Nicotine dependence, unspecified, uncomplicated
CPT/HCPCS: 73030; 73080; 73560; 99283; 99284

== ENCOUNTER 2020-08-09 18:21 | Emergency (ER) | payer OTHER, SELFPAY ==
--- NOTE | 2020-08-09 18:38 | ED_ITS ---
HPI - CPR General Chief Complaint: Cardiac Arrest/CPR Stated Complaint: Cardiac arrest Time Seen by Provider: 08/09/20 18:35 Source: patient and EMS Mode of arrival: EMS Limitations: other History of Present Illness HPI narrative: Patient comes to the emergency room in cardiac arrest. Per EMS, the last time that the patient was seen normal was at 14:30. We were informed by EMS that an unknown male called 911, told the printer slotter operator there's a man in here hung up, left the property door open, did not return. Nobody knows who made the phone call. Per family/friends, the Patient had been drinking alcohol with friends this afternoon. EMS work on the patient for close to an hour in the field, they were considering calling the hospital to call for permission to call the code. However, patient had a run of PEA for a few minutes, and EMS brought the patient to the emergency room. Patient had a Felipe airway due to difficult intubation in the field, on arrival to the emergency room, patient was in asystole. In the field, patient received 7 does of epinephrine and narcan. EMS reports that by the time of arrival to the emergency room, they had been doing CPR for 1 hour MD complaint: found unresponsive Related Data Home Medications Medication Instructions Recorded Confirmed betamethasone dipropionate TOPICAL BID 02/10/20 cholecalciferol (vitamin D3) 1 cap PO DAILY 02/10/20 02/10/20 diclofenac sodium 2 g TOPICAL QID 02/10/20 02/10/20 fluticasone propionate [Flovent 1 puff INHALATION 02/10/20 HFA] folic acid 1 tab PO DAILY 02/10/20 02/10/20 insulin glargine [Lantus Solostar 10 unit SUBCUT BEDTIME 02/10/20 02/10/20 U-100 Insulin] loratadine 1 tab PO DAILY 02/10/20 02/10/20 melatonin 1 tab PO BEDTIME 02/10/20 02/10/20 metformin 1 tab PO BID 02/10/20 02/10/20 montelukast 1 tab PO DAILY 02/10/20 02/10/20 sertraline 1 tab PO DAILY 02/10/20 02/10/20 tramadol 1 tab PO Q8H PRN 02/10/20 02/10/20 trazodone 1 - 2 tab PO BEDTIME PRN 02/10/20 02/10/20 umeclidinium [Incruse Ellipta] 1 inh INHALATION 02/10/20 Previous Rx's Medication Instructions Recorded amoxicillin-pot clavulanate 1 tab PO BID #20 tab 01/27/20 [Augmentin] ibuprofen 600 mg PO Q6H PRN #20 tab 01/27/20 cyclobenzaprine 10 mg PO TID PRN #14 tab 02/10/20 tramadol 50 mg PO BID PRN #10 tab 06/05/20 tramadol 50 mg PO BID PRN #10 tab 06/05/20 Allergies Allergy/AdvReac Type Severity Reaction Status Date / Time No Known Allergies Allergy Verified 02/10/20 06:47 Review of Systems Review of Systems: Yes Unobtainable due to mental condition [facility] Past Medical History Medical History Arthritis Asthma Diabetes HTN (hypertension) Social History Social History Alcohol intake: never Smoking Status: Current every day smoker Advance Directives: No Advance Directives Information Provided: Yes Physical Exam Vital Signs: Appearance: Unresponsive , morbidly obese Eyes: myadriasis, and reactive to light ENT: Copious amounts of blood in the oropharynx visualized prior to intubation attempt, Mallapati class 4 Neck: Obese , short neck CVS: Asystole, CPR in progress Respiratory: Felipe airway in place Abdomen: Distended Skin: Mottled Extremities: No obvious trauma Neuro: Unresponsive Course Course Course Narrative: As mentioned above, by the time the patient arrived to the emergency room, CPR had been in progress for about an hour without ROSC, it was determined that the patient's prognosis is poor. CPR was continued, two more epinephrine doses were given. Patient came in with a Felipe airway, when the Felipe airway was removed, a copious amount of blood was visualized with the GlideScope. Due to patient's body habitus, this was a difficult intubation, vocal cords could not be visualized. Being aware that the patient had a poor p rognosis, had undergone CPR for over an hour, a surgical airway was not indicated. An LMA I-gel was inserted for ventilation for the last resuscitation attempt. It was determined that any further resuscitation efforts would be futile, time of was called at 18:31. Friend of the patient arrived to the emergency room, no family. The patient's friend Benji stated that earlier this morning, patient went shopping in [place]. Seems that he was doing well. Benji received a phone call from the patient at approximately 16:45, according to Benji, they had a normal conversation. Benji went to the patient's house, by the time that Benji arrived, neighbor's an EMS was there attempting resuscitation. Benji requested that he wanted to go be with the patient's mother, they would call us when he was present at her side, then the plan is to talk to the mother and let her know what happened. As planned, Benji was at the patient's mother's side, I spoke with the mother and informed her about her son's . The family declined visiting the patient in the ED, requested services. At this time, cause of is undetermined, possible overdose. Also considered CT versus PE versus asthma exacerbation in to hypoxia and cardiac arrest The medical insurance claims specialist team was contacted, Dr. Davonte Key accepted the case, #[id number] MDM - Cardiac Arrest/CPR Lab Data Labs: Lab Results 08/09/20 Range/Units 18:29 POC Glucose 356 H* (60-115) mg/dL Discharge Plan Discharge Clinical Impression: Cardiac arrest Patient Disposition:
[2020-08-09 18:41] LABS: Glucose, Whole Blood 356 mg/dL (60-115)
--- NOTE | 2020-08-09 19:02 | PC.NURSE ---
CALLED [facility] AND WAS TOLD THEY WILL CALL BACK TO THE FACILITY
--- NOTE | 2020-08-09 20:02 | PC.NURSE ---
[facility] ACCEPTING CASE#[id number] REDDY VERMA. PATIENT ALSO ACCEPTED BY [facility] CASE #[id number], FLOOR SANDER i SPOKE WITH WAS AMRITA.
== END 2020-08-09 21:10 | disposition expired ==
PROVIDERS: Emergency Provider Emergency Medicine
DX: I46.9 Cardiac arrest, cause unspecified (principal); Z79.899 Other long term (current) drug therapy
CPT/HCPCS: 82947; 99283; J0171